=== PATIENT | female | born 1980 | race Caucasian/White ===

== ENCOUNTER → 2016-10-31 | Outpatient (CLI) | payer BC ==
--- NOTE | 2016-10-31 10:10 | RAD ---
Examination: Ultrasound soft tissue neck History: History of left-sided neck, intermittent nodule, painful Comparison: None available Findings: There are multiple lymph nodes identified in the left neck region measuring 1.7 x 1.5 x 0.8 cm, 1.1 x 0.6 x 0.3 cm, 1.4 x 0.7 x 0.4 cm, 1.8 x0.7 x 0.3 cm. Impression: Mild prominent appearing cervical lymph nodes on the left with the largest measuring 1.8 cm. Close interval follow-up examination or CT soft tissue neck with IV contrast is recommended for further evaluation if clinically feasible.
== END | disposition home or self-care (01) ==
LOC: US 08:42
PROVIDERS: ATTEND Nurse Practitioner Family
DX: R59.0 Localized enlarged lymph nodes (principal)
CPT/HCPCS: 76536

== ENCOUNTER → 2016-11-04 | Outpatient (CLI) | payer BC ==
[~2016-11-04] MED LIST: IOHEXOL 300 MG/ML 75 ML VIAL. IV ONE
--- NOTE | 2016-11-04 13:15 | RAD ---
CT of the neck with contrast, 11/04/2016: History: Swollen and painful lymph nodes Multidetector CT imaging was performed following an IV bolus injection of iodinated contrast material. Multiplanar reconstructions were produced. The thyroid gland is unremarkable. No laryngeal abnormality is seen. The parotid and submandibular glands are unremarkable. The tonsils are slightly prominent but symmetric. No abscess is evident. The inferior aspects of the paranasal sinuses are clear. Several small cervical lymph nodes are present bilaterally. The largest of these lie in the upper neck between the sternocleidomastoid muscles and submandibular glands bilaterally. On the right the largest node measures 9 x 15 mm millimeters, while the largest node on the left measures 11 x 15 mm. These nodes are therefore considered to be at the upper limits of normal in size. IMPRESSION: 1. Borderline upper cervical adenopathy. 2. Mild symmetrical enlargement of the tonsils. PQRS Compliance Statement: One or more of the following individualized dose reduction techniques were utilized for this examination: 1. Automated exposure control 2. Adjustment of the mA and/or kV according to patient size 3. Use of iterative reconstruction technique
== END | disposition home or self-care (01) ==
LOC: CT 08:06
PROVIDERS: ATTEND Nurse Practitioner Family
DX: R59.0 Localized enlarged lymph nodes (principal)
CPT/HCPCS: 70491; Q9967

== ENCOUNTER → 2017-01-01 | Outpatient (CLI) | payer BC ==
--- NOTE | 2017-01-01 11:50 | RAD ---
Neck for soft tissues, 01/01/2017: History: Follow-up borderline enlarged cervical lymph nodes Several small elongated cervical lymph nodes are identified on the left. They are smooth and demonstrate a normal echogenic hilum. These nodes measure 1.5 x 1.0 x 0.8 cm, 1.2 x 0.7 x 0.4 cm, 1.4 x 0.8 x 0.4 cm and 1.4 x 0.6 x 0.3 cm. Several of these nodes appear to have decreased slightly in size since 10/31/2016, while the other nodes are stable. Based on their short axis dimensions these nodes are considered to be within normal limits in size. No new or enlarging cervical lymph nodes are seen. Incidental note is made of a 1.3 x 0.9 x 0.8 cm left thyroid nodule. Its margins are smooth. Its sonographic characteristics are nonspecific. IMPRESSION: 1. Stable and regressing cervical lymph nodes as described above. There is no current evidence of significant adenopathy. 2. Small nonspecific left thyroid nodule.
== END | disposition home or self-care (01) ==
LOC: US 10:28
PROVIDERS: ATTEND Otolaryngology
DX: E04.1 Nontoxic single thyroid nodule (principal); R59.9 Enlarged lymph nodes, unspecified
CPT/HCPCS: 76536

== ENCOUNTER → 2017-08-11 | Outpatient (CLI) | payer OTHER ==
--- NOTE | 2017-08-11 10:29 | RAD ---
Sonography of the soft tissues of the neck Clinical indications: Left-sided lymph nodes. Follow-up study. Comparison: January 01, 2017. Findings: Sonography of the left side of the neck demonstrates lymph nodes with an echogenic hilus and no abnormal cortical thickening i.e. normal lymph node sonographic architecture. There has been no significant change in size. The largest lymph node measures 16 mm in size. There are 2 left submandibular lymph nodes which demonstrate a normal sonographic architecture as well. Largest lymph node here measures 8 mm in size. Again seen is a heterogeneous solid nodule of the left lobe of thyroid gland which measures 13 mm in greatest dimension. This is unchanged. IMPRESSION: No enlarging cervical lymphadenopathy. No significant change in size. No significant change in size of left lobe thyroid nodule.
== END | disposition home or self-care (01) ==
LOC: US 08:42
PROVIDERS: ATTEND Otolaryngology
DX: E04.1 Nontoxic single thyroid nodule (principal); R59.9 Enlarged lymph nodes, unspecified
CPT/HCPCS: 76536

== ENCOUNTER → 2021-11-28 | Outpatient (CLI) | payer BC ==
--- NOTE | 2021-11-28 13:34 | RAD ---
INDICATION: 40 years of age asymptomatic female patient presents for screening mammography. No person al or family history of breast cancer. TECHNIQUE: Full field craniocaudal and mediolateral oblique images of both breasts were obtained usi ng digital technique with tomosynthesis and also analyzed with computer-aided detection software. COMPARISON: Baseline mammogram. BREAST COMPOSITION: Category A: The breasts are predominantly fatty. FINDINGS: Right breast: 9 mm focal asymmetry at the 4 to 5:00 position, anterior deep. No suspicious architectu ral distortion or suspicious calcifications. Left breast: No suspicious masses, microcalcifications or architectural distortion is present to sugg est malignancy. The visualized axillae are unremarkable. IMPRESSION: Indeterminate right breast focal asymmetry at the 4 to 5:00 position, anterior depth. Add itional evaluation with spot compression views and possibly followed with targeted right breast ultra sound. RECOMMENDATION: The patient will be contacted to return for additional imaging and a supplemental rep ort will follow. BIRADS 0: INCOMPLETE - NEED ADDITIONAL IMAGING EVALUATION AND/OR PRIOR MAMMOGRAMS FOR COMPARISON. This study was interpreted with the benefit of Computerized Aided Detection (CAD). Patient information is entered into the reminder system with a target due date for the next screening mammogram. Mammography is the most sensitive method for finding small breast cancers, but it does not detect the m all and is not a substitute for careful clinical examination. A negative mammogram does not negate a clinically suspicious finding and should not result in delay in biopsying a clinically suspicious a bnormality. "Our facility is accredited by the [employer] Mammography [employer]." Electronically signed by: Surinder Espinoza DO (11/28/2021 1:32 PM) [id number]
== END ==
LOC: MAMMO 07:55
PROVIDERS: ATTEND Obstetrics & Gynecology
DX: Z12.31 Encounter for screening mammogram for malignant neoplasm of breast (principal)
CPT/HCPCS: 77063; 77067

== ENCOUNTER → 2021-12-20 | Outpatient (CLI) | payer BC ==
--- NOTE | 2021-12-20 14:39 | RAD ---
DATE: 12/20/2021 EXAM: MG DIAGNOSTICUNILAT MAMMO, US BREAST RT HISTORY: Recalled from screening mammogram for focal asymmetry in the right breast. COMPARISON: 11/28/2021 Breast Density: SCATTERED The breast parenchyma shows scattered fibroglandular densities. Breast pare nchyma level B. FINDINGS: The 6 mm focal asymmetry persists on spot compression CC view but is not well seen on spot compression MLO overview. On ML view, there is a 6 mm nodule at 3:00 with a fatty hilum that, likely a lymph node. This is 3 cm posterior to the nipple on ML view. Ultrasound of the entire medial right breast was performed. There is no mass, cyst, or lymph node see n. IMPRESSION: Persistent probably benign 6 mm focal asymmetry on diagnostic mammogram, without sonograp hic correlation. This may be a small lymph node. Recommend 6 month follow-up right breast mammogram with possible ultrasound if indicated. BI-RADS CATEGORY: 3 PROBABLY BENIGN FINDING(S)-SHORT INTERVAL FOLLOW-UP SUGGESTED RECOMMENDED FOLLOW-UP: 6M 6 MONTH FOLLOW-UP PQRS compliance statement: Patient information was entered into a reminder system with a target due d ate for the next mammogram. Mammography is a sensitive method for finding small breast cancers, but it does not detect them all a nd is not a substitute for careful clinical examination. A negative mammogram does not negate a clin ically suspicious finding and should not result in delay in biopsying a clinically suspicious abnorma lity. "Our facility is accredited by the [employer] Mammography [employer]." Electronically signed by: Dacia Nesbitt MD (12/20/2021 2:37 PM) [id number]
== END ==
LOC: MAMMO 12:15
PROVIDERS: ATTEND Family Medicine
DX: N63.41 Unspecified lump in right breast, subareolar (principal); R92.2 Inconclusive mammogram
CPT/HCPCS: 76641; 77065